=== PATIENT | female | born 2000 | race Caucasian/White ===

== ENCOUNTER 2020-04-02 08:31 | Outpatient (CLI) | payer OTHER ==
--- NOTE | 2020-04-02 10:57 | ULT ---
GALLBLADDER ULTRASOUND: Date: 04/02/2020 HISTORY: Right upper quadrant pain. FINDINGS: The liver, gallbladder, and right kidney appear normal. No free fluid is seen in Morison's pouch. The common duct measures 4.0 mm in diameter. IMPRESSION: Normal right upper quadrant sonogram. POS: AH
== END 2020-04-02 08:32 | disposition home or self-care (01) ==
LOC: BICULT 08:31
PROVIDERS: ATTEND Internal Medicine Gastroenterology
DX: R10.13 Epigastric pain (principal); R11.0 Nausea
CPT/HCPCS: 76705

== ENCOUNTER 2020-04-27 09:03 | Outpatient (CLI) | payer OTHER ==
--- NOTE | 2020-04-27 12:26 | NM ---
HEPATOBILIARY SCAN: HISTORY:Epigastric abdominal pain RADIOPHARMACEUTICAL: 4.87 mCi Technetium 99m Mebrofenin injected intravenously FINDINGS: There is normal tracer extraction by the liver with normal excretion into the biliary tracts and smal l bowel loops and normal filling of the gallbladder. The calculated gallbladder ejection fraction following an oral fatty meal measures 49%. IMPRESSION:Normal exam.
== END 2020-04-27 09:04 | disposition home or self-care (01) ==
LOC: NM 09:03
PROVIDERS: ATTEND Physician Assistant Medical
DX: R10.13 Epigastric pain (principal); R11.0 Nausea; K59.00 Constipation, unspecified
CPT/HCPCS: 78227; A9537